=== PATIENT | female | born 1940 | race Caucasian/White ===

== ENCOUNTER 2020-07-14 07:02 | Day surgery (SDC) | payer OTHER ==
--- NOTE | 2020-07-09 10:41 | RAD REPORT ---
EXAM DESCRIPTION: RAD - Chest Pa And Lat (2 Views) - 07/09/2020 10:21 am CLINICAL HISTORY: pre op Chest pain. COMPARISON: No comparisons TECHNIQUE: PA and lateral views of the chest were obtained. FINDINGS: The lungs are hyperexpanded compatible with COPD. The heart is upper limit of normal in si ze. No fracture or aggressive bony process. IMPRESSION: COPD without acute process identified.
[2020-07-09 11:14] LABS: Absolute Lymphocytes (CBC) 1.7 K/uL (0.7-4.9); Basophils % 0.4 % (0-1.3); Lymphocytes % 30.8 % (15.3-44.8); MPV 11.5 fL (7.6-11.3); RBC Red Blood Cell Count 4.41 M/uL (3.86-4.86)
[2020-07-09 11:18] LABS: Albumin 3.8 g/dL (3.4-5.0); Bilirubin Direct 0.1 mg/dL (0-0.2); Bilirubin Total 0.5 mg/dL (0.2-1.0); Potassium 4.6 mmol/L (3.5-5.1); Protein, Total 7.5 g/dL (6.4-8.2)
[2020-07-14] MEDS ORDERED: FENTANYL CITR 100 MCG/2 ML ONE (07:20)
[2020-07-14] MEDS ORDERED: MIDAZOLAM HCL 2 MG/2 ML INJ ONE (07:20)
[2020-07-14] MEDS ORDERED: ROCURONIUM 50 MG/5 ML VIAL IV ONE (07:20)
[2020-07-14] MEDS ORDERED: LIDOCAINE 2% MPF 5 ML VIAL ONE (07:20)
[2020-07-14] MEDS ORDERED: dexAMETHasone 10 MG/ML VIAL ONE (07:20)
[2020-07-14] MEDS ORDERED: ONDANSETRON 4 MG/2 ML VIAL ONE (07:20)
[2020-07-14] MEDS ORDERED: propofoL 200 MG/20 ML VIAL IV ONE (07:20)
[2020-07-14] MEDS ORDERED: Ringers Lactate 1,000 ML IV ONE (07:28)
[2020-07-14] MEDS ORDERED: CEFOXITIN/SWI 1gm 1 GM/10 ML SYR ONE (07:40)
[2020-07-14] MEDS ORDERED: EPHEDRINE SULF 50 MG/ML VIAL ONE (08:57)
--- NOTE | 2020-07-14 09:12 | P.BOP ---
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
[2020-07-14] MEDS ORDERED: KETOROLAC 30 MG/ML INJ ONE (09:13)
[2020-07-14] MEDS ORDERED: GLYCOPYRROLATE 0.2 MG/ML SYR ONE (09:16)
[2020-07-14] MEDS ORDERED: NEOSTIGMINE 1 MG/ML -5 ML ONE (09:16)
[2020-07-14 10:13] VITALS: BP 127/44; TEMP 97.8; O2SAT 100
[2020-07-14] MEDS ORDERED: CODEINE 30MG/APAP 300MG TAB ONE (10:28)
--- NOTE | 2020-07-28 09:54 | OP ---
Date of Procedure: 07/14/2020 Surgeon: Joe Adams MD Switch Operator: JUAN Meza. Preoperative Diagnosis: Symptomatic cholelithiasis, acute cholecystitis, right upper quadrant abdomi nal pain. Postoperative Diagnosis: Symptomatic cholelithiasis, acute cholecystitis, right upper quadrant abdom inal pain. Procedure: Laparoscopic cholecystectomy. Estimated Blood Loss: Less than 10 mL. Specimen: Gallbladder. Finding: As above. Anesthesia: General plus local. Indications: This is a case of a lady who comes to us with above diagnosis. Fully explained the torsten efits, alternatives, and risks of laparoscopic possible open cholecystectomy, which include, but not limited to infection, bleeding, damage to adjacent structures and complication, choledocholithiasis, bile leak, pancreatitis, MT, and even . She also understands this may not relieve the symptoms. She might need more than one surgical intervention. She understood, signed a consent. Description Of Procedure: The patient was brought to the operating room, placed in supine position. Anesthesia was done without complication. Abdominal area was prepped and draped in a sterile fashio n. Marcaine 0.5% was injected for local anesthetic followed by sharp incision of the skin in the inf raumbilical region. Incision was carried down to fascia, which was opened under direct vision. Vicr yl #1 was placed inside the fascia. Karen trocar was carefully introduced. Pneumoperitoneum was ob tained. I placed 3 more trocars, 5 mm each one of them in the right upper quadrant under direct visu alization. This allowed me to put a grasper in the fundus of the gallbladder and another grasper in the infundibulum retracting the gallbladder in the inferolateral fashion exposing the triangle of Dionisio ot obtaining critical view. Cystic duct and cystic artery were clearly isolated free circumferential ly and a connection between those and the gallbladder were clearly identified. I proceeded to ligate those by using at least 3 clips proximal, 1 clip distal, ligation in middle. Same was done with the cystic artery. No bile leak. No bleeding. The gallbladder was removed from liver using Bovie caut erizer and removed from abdominal cavity using EndoCatch through umbilical incision. The area was in spected once again. No bile leak. No bleeding. At that moment, I proceeded to remove the trocars u nder direct vision, deflated pneumoperitoneum, closed the fascia with 1 Vicryl. Irrigated subcutaneo us tissue, closed that with 3-0 chromic and skin approximated. Sponge count and instrument counts we re correct. The patient tolerated the procedure well. The patient was sent to Recovery in stable co ndition. Disposition: Home. Activity: As tolerated. No heavy lifting. Plan: Follow up in my office in 1 week. Call for appointment at [phone]. Keep area dry for 48 rj rs, then may shower. Medications: For medications see orders. REAT/RORY Voice ID: [id number] Report ID: [id number]
== END 2020-07-14 11:10 | disposition home or self-care (01) ==
LOC: OR 07:02
PROVIDERS: ATTEND Surgery
PROC: 0FT44ZZ Resection of Gallbladder, Percutaneous Endoscopic Approach (ICD-10-PCS; principal; 2020-07-14 08:45)
DX: K80.10 Calculus of gallbladder with chronic cholecystitis without obstruction (principal); Z20.828 Contact with and (suspected) exposure to other viral communicable diseases; Z01.812 Encounter for preprocedural laboratory examination; J44.9 Chronic obstructive pulmonary disease, unspecified; F41.9 Anxiety disorder, unspecified; F32.9 Major depressive disorder, single episode, unspecified; I10 Essential (primary) hypertension; I34.1 Nonrheumatic mitral (valve) prolapse; K21.9 Gastro-esophageal reflux disease without esophagitis; K44.9 Diaphragmatic hernia without obstruction or gangrene; E78.00 Pure hypercholesterolemia, unspecified; Z79.899 Other long term (current) drug therapy
CPT/HCPCS: 47562; 93005; 85025; 80048; 36415; 82150; 80076; 88304; 83690; 71046; U0002; J2704; J2250; J3010; J1100; J2710; J7120; J2405